=== PATIENT | female | born 1960 | race African-American/Black ===

== ENCOUNTER 2024-08-30 15:18 | Inpatient (IN) | payer MEDICARE, MEDICAID ==
[~2024-08-30] VITALS: Ht 172.7 cm; Wt 95.3 kg
[2024-08-30 16:00] LABS: BASOPHILS % (AUTO) 0.3 % (0.0-2.0); EOSINOPHILS % (AUTO) 0.8 % (0.0-6.0); HEMATOCRIT 34 % (33-45); HEMOGLOBIN 10.9 g/dL (11.5-14.8); LYMPHOCYTES # (AUTO) 2.8 K/uL (0.8-4.8); LYMPHOCYTES % (AUTO) 53.5 % (20.0-44.0); MEAN CORPUSCULAR HEMOGLOBIN 28 PG (26.0-33.0); MEAN CORPUSCULAR HGB CONC 33 g/dl (31.0-36.0); MEAN CORPUSCULAR VOLUME 87 fL (82-100); MONOCYTES # (AUTO) 0.5 K/uL (0.1-1.30); MONOCYTES % (AUTO) 9.6 % (2.0-12.0); NEUTROPHILS # (AUTO) 1.9 K/uL (1.8-8.9); NEUTROPHILS % (AUTO) 35.8 % (43.0-81.0); PLATELET COUNT (AUTO) 182 K/uL (150-450); RED BLOOD CELL COUNT(AUTO) 3.88 MIL/uL (4.0-5.2); RED CELL DISTRIBUTION WIDTH 17.8 % (11.5-15.0); WHITE BLOOD COUNT (AUTO) 5.3 K/uL (4.3-11.0)
[2024-08-30 16:06] LABS: APPEARANCE,URINE CLEAR (CLEAR); BILIRUBIN,URINE NEGATIVE (NEGATIVE); BLOOD, URINE NEGATIVE Ery/uL (NEGATIVE); COLOR,URINE YELLOW (YELLOW); KETONES,URINE TRACE mg/dL (NEGATIVE); LEUKOCYTE ESTERASE ,URINE NEGATIVE (NEGATIVE); NITRITE, URINE NEGATIVE (NEGATIVE); PROTEIN,URINE NEGATIVE (NEGATIVE); UGLUCOSE NEGATIVE (NEGATIVE)
[2024-08-30 16:08] LABS: CALCIUM, SERUM 9.2 mg/dL (8.5-10.1); CARBON DIOXIDE 28 mmol/L (21-32); CHLORIDE 104 mmol/L (98-107); CREATININE 0.7 mg/dL (0.6-1.3); GLUCOSE 217 mg/dL (74-106); POTASSIUM 3.9 mmol/L (3.5-5.1); SODIUM SERUM 139 mmol/L (136-145); UREA NITROGEN, BLOOD 11 mg/dL (7-18)
[2024-08-30 16:12] LABS: ADD URINE CULTURE NO; BACTERIA,URINE Few /HPF (None Seen); RBC,URINE 0-2 /HPF (0-2)
[2024-08-30 16:15] LABS: ALANINE AMINOTRANSFERASE 25 U/L (12-78); ALBUMIN 3.2 g/dL (3.4-5.0); ALCOHOL, BLOOD < 3 mg/dL (0-10); ALKALINE PHOSPHATASE 150 U/L (46-116); ASPARTATE AMINOTRANSFERASE 13 U/L (15-37); BILIRUBIN,DIRECT 0.1 mg/dL (0.0-0.2); BILIRUBIN,TOTAL 0.2 mg/dL (0.2-1.0); SALICYLATE 3.5 mg/dL (2.8-20.0); TOTAL PROTEIN, SERUM 8.5 g/dL (6.4-8.2)
[2024-08-30 16:17] LABS: ACETAMINOPHEN <10 ug/ml (10-30)
[2024-08-30 16:19] LABS: AMPHETAMINE, URINE NEGATIVE (NEGATIVE); BARBITURATE, URINE NEGATIVE (NEGATIVE); BENZODIAZEPINE, URINE NEGATIVE (NEGATIVE); CANNABINOID, URINE NEGATIVE (NEGATIVE); COCCAINE, URINE NEGATIVE (NEGATIVE); OPIATE, URINE NEGATIVE (NEGATIVE); PHENCYCLIDINE SCREEN,URINE NEGATIVE (NEGATIVE)
[2024-08-30] MEDS ORDERED: INSU100V39 SQ (16:23)
[2024-08-30] MEDS ORDERED: METF-440 PO (16:23)
[2024-08-30] MEDS ORDERED: GLIM4TAB37 PO (16:23)
[2024-08-30] MEDS ORDERED: ATOR10TA PO (16:23)
[2024-08-30] MEDS ORDERED: MAGN400O6 PO (16:23)
[2024-08-30] MEDS ORDERED: DIVA-78 PO (16:23)
[2024-08-30] MEDS ORDERED: MAG30ORA PO (16:23)
[2024-08-30] MEDS ORDERED: LISI10TA29 PO (16:23)
[2024-08-30] MEDS ORDERED: HYDR25TA4 PO (16:23)
[2024-08-30] MEDS ORDERED: OLANZAPINE 10 MG VIAL IM ONE (18:02)
[2024-08-30] MEDS: OLANZAPINE 10 MG VIAL IM ONE (18:18)
[2024-08-30 19:15] VITALS: O2SAT 96
[2024-08-30] MEDS ORDERED: LORAZEPAM INJ 2 MG/ML VIAL ONE (19:57)
[2024-08-30] MEDS: LORAZEPAM INJ 2 MG/ML VIAL IM ONE (20:05)
[2024-08-30] MEDS ORDERED: LORAZEPAM 0.5 MG TABLET PO PRN (21:00)
[2024-08-30] MEDS ORDERED: ACETAMINOPHEN 325 MG TABLET PO PRN (21:00)
[2024-08-30] MEDS ORDERED: MAG HYDROX/AL HYDROX/SIMETH 30 ML UDC PO PRN (21:00)
[2024-08-30] MEDS ORDERED: LORAZEPAM 1 MG TABLET PO PRN (21:00)
[2024-08-30] MEDS ORDERED: MAGNESIUM HYDROXIDE 30 ML UDC PO PRN (21:00)
[2024-08-30] MEDS ORDERED: TEMAZEPAM 7.5 MG CAPSULE PO PRN (21:00)
[2024-08-30] MEDS: BLOOD SUGAR DIAGNOSTIC 1 EACH STRIP IN ONE (21:08)
[2024-08-30] MEDS ORDERED: DEXTROSE 50%-WATER 50 ML DISP.SYRIN IV PRN (22:00)
[2024-08-30] MEDS: BLOOD SUGAR DIAGNOSTIC 1 EACH STRIP IN SCH (22:57)
[2024-08-31 08:00] VITALS: BP 154/73; TEMP 97.8; O2SAT 96
[2024-08-31] MEDS: HYDROCHLOROTHIAZIDE 25 MG TABLET PO SCH (08:17)
[2024-08-31] MEDS: GLIMEPIRIDE 4 MG TABLET PO SCH (08:17)
[2024-08-31] MEDS: METFORMIN 500 MG TABLET PO SCH (08:17)
[2024-08-31] MEDS: LISINOPRIL (10MG) 10 MG TABLET PO SCH (08:17)
[2024-08-31] MEDS: INSULIN REGULAR, HUMAN 100 UNIT/ML 3 ML VIAL SQ PRN (08:24)
[2024-08-31 08:31] LABS: BILIRUBIN,TOTAL 0.4 mg/dL (0.2-1.0); CALCIUM, SERUM 8.9 mg/dL (8.5-10.1); CREATININE 0.6 mg/dL (0.6-1.3); POTASSIUM 4.2 mmol/L (3.5-5.1); TOTAL PROTEIN, SERUM 7.9 g/dL (6.4-8.2)
[2024-08-31 08:33] LABS: THYROID STIMULATING HORMONE 1.17 uIU/mL (0.358-3.74)
[2024-08-31 16:00] VITALS: BP 158/96; TEMP 98.4; O2SAT 99
[2024-08-31] MEDS: DIVALPROEX SODIUM 500 MG TABLET.DR PO SCH (17:19)
[2024-08-31 20:00] VITALS: BP 163/88; TEMP 98.6; O2SAT 98
[2024-08-31] MEDS: ATORVASTATIN 10 MG TABLET PO SCH (21:15)
[2024-09-01 08:00] VITALS: BP 153/111; TEMP 97.8; O2SAT 97
[2024-09-01 16:00] VITALS: BP 126/88; TEMP 97.9; O2SAT 97
[2024-09-01 20:11] VITALS: BP 131/86; TEMP 97.8; O2SAT 96
[2024-09-01] MEDS: TEMAZEPAM 7.5 MG CAPSULE PO PRN (21:30)
[2024-09-02 08:00] VITALS: BP 122/84; TEMP 98; O2SAT 99
[2024-09-02 16:00] VITALS: BP 124/82; TEMP 97.9; O2SAT 96
[2024-09-02 20:33] VITALS: BP 119/75; TEMP 97.9; O2SAT 98
[2024-09-03 08:40] VITALS: BP 151/88; TEMP 97.8; O2SAT 98
[2024-09-03 16:00] VITALS: BP 150/86; TEMP 98.8; O2SAT 96
[2024-09-03 20:41] VITALS: BP 142/83; TEMP 98.1; O2SAT 97
[2024-09-04 08:00] VITALS: BP 150/80; TEMP 98.6; O2SAT 97
[2024-09-04 08:39] VITALS: BP 150/80
== END 2024-09-04 12:45 | DRG 885 ==
LOC: ER 15:30 → GPS 20:22
PROVIDERS: ADMIT Nurse Practitioner Psychiatric/Mental Health; ATTEND Registered Nurse
DX: F39 Unspecified mood [affective] disorder (principal); E11.65 Type 2 diabetes mellitus with hyperglycemia; E44.1 Mild protein-calorie malnutrition; F29 Unspecified psychosis not due to a substance or known physiological condition; D64.9 Anemia, unspecified; E78.5 Hyperlipidemia, unspecified; K42.9 Umbilical hernia without obstruction or gangrene; I10 Essential (primary) hypertension; F20.9 Schizophrenia, unspecified; F31.9 Bipolar disorder, unspecified; F41.9 Anxiety disorder, unspecified; Z88.0 Allergy status to penicillin; Z79.84 Long term (current) use of oral hypoglycemic drugs; Z79.4 Long term (current) use of insulin; Z73.6 Limitation of activities due to disability; E88.09 Other disorders of plasma-protein metabolism, not elsewhere classified; E88.810 Metabolic syndrome; E66.9 Obesity, unspecified; F17.210 Nicotine dependence, cigarettes, uncomplicated; Z68.31 Body mass index [BMI] 31.0-31.9, adult; Z79.899 Other long term (current) drug therapy
CPT/HCPCS: 36415; 80048-TC; 80053-TC; 80061-TC; 80076-TC; 80164-TC; 81001; 82607-TC; 82728-TC; 82962-TC; 83540-TC; 84439-TC; 84443-TC; 85025-TC; 87081-TC; 97110-TC; 97116-TC; 97530-TC; G0480; J1815; J2060; J3490